=== PATIENT | male | born 1980 | race Caucasian/White ===

== ENCOUNTER → 2016-08-11 | Outpatient (CLI) | payer OTHER ==
--- NOTE | 2016-08-22 10:29 | MR ---
EXAMINATION TYPE: MR brain wo con DATE OF EXAM: 08/11/2016 11:04 AM COMPARISON: Outside MRI dated 07/14/2014 HISTORY: TIA T1-weighted sagittal, T2, FLAIR, and diffusion axial, and T2 coronal coronal views of the brain are s ubmitted. There is no evidence of acute ischemia. The ventricles, basal cisterns, and sulci overlying the conv exities are consistent with the patient's age. There is no mass effect. There is a partially empty sella turcica. Craniocervical junction is maintained. 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 Normal vascular signal voids are noted. Small pineal gland cyst incidentally noted. No cerebellopontine angle mass. WHITE MATTER: There are 3 less than 5 mm areas of abnormal signal seen throughout the white matter. O f doubtful significance. No callosal lesions. No lesions perpendicular to the ventricular system. Single focal area of signal within the te on the right is noted on FLAIR imaging only and likely a rtifactual. IMPRESSION: 1. No acute intracranial process. 2. Minimal nonspecific white matter disease of questionable significance. 3. Moderate to severe chronic appearing ethmoidal sinusitis.
== END | disposition home or self-care (01) ==
LOC: RADMRIMAIN 10:14
PROVIDERS: ATTEND Psychiatry & Neurology Neurology
DX: J32.2 Chronic ethmoidal sinusitis (principal); R90.82 White matter disease, unspecified
CPT/HCPCS: 70551

== ENCOUNTER 2016-11-12 21:23 | Emergency (ER) | payer OTHER ==
[2016-11-12 21:54] VITALS: BP 137/79; PULSE 86; RESP 18; TEMP 99
[2016-11-12] MEDS ORDERED: HYDROmorphone 1 MG/ML 1 ML SYRINGE IM STA (22:25)
[2016-11-12] MEDS ORDERED: DEXAMETHASONE SOD PHOSPHATE 10 MG/ML 1 ML VIAL IM STA (22:25)
--- NOTE | 2016-11-12 22:33 | ED ---
General Adult HPI - General Chief complaint: Back Pain/Injury Stated complaint: Back Pain Time Seen by Provider: 11/12/16 22:07 Source: patient, RN notes reviewed Mode of arrival: wheelchair Limitations: no limitations - History of Present Illness Initial comments: Patient is 36-year-old male significant past medical history for back pain. He does admit to some pain radiating to the right hip area. States is consistent with chronic pain that is had in the past. Does admit that at times he seems to exacerbate. He does admit that he is taking Dike with little relief. Patient denies any bowel or bladder incontinence retention. Denies any saddle anesthesia. Denies any other complaints or symptoms. Denies any injury or trauma to the area. Patient denies any recent fever, chills, shortness of breath , chest pain, abdominal pain, nausea or vomiting, dysuria or hematuria, constipation or diarrhea, headaches or visual changes, or any other complaints. - Related Data Home Medications Medication Instructions Recorded Confirmed Promethazine [Phenergan] 25 mg PO Q6HR PRN 01/01/14 05/19/16 HYDROcodone/APAP 7.5-325MG [[place] 1 tab PO Q6H PRN 05/20/14 05/19/16 7.5] Aspirin EC [Ecotrin Low Dose] 81 mg PO HS 05/19/16 05/19/16 Omeprazole 20 mg PO HS 05/19/16 05/19/16 Ranitidine HCl [Zantac] 75 mg PO HS 05/19/16 05/19/16 Previous Rx's Medication Instructions Recorded Amoxicillin/Potassium Clav 1 tab PO Q12HR 14 Days 05/19/16 [Augmentin 875-125 Tablet] Ibuprofen [Motrin] 800 mg PO Q8HR PRN #21 tab 05/19/16 Ondansetron HCl [Zofran] 4 mg PO Q8HR PRN #12 tab 05/19/16 Allergies Allergy/AdvReac Type Severity Reaction Status Date / Time No Known Allergies Allergy Verified 11/12/16 21:54 Review of Systems ROS Statement: Those systems with pertinent positive or pertinent negative responses have been documented in the HPI. ROS Other: All systems not noted in ROS Statement are negative. Past Medical History Past Medical History: CVA/TIA Additional Past Medical History / Comment(s): diverticulitis, crohns, back problems History of Any Multi-Drug Resistant Organisms: None Reported Past Surgical History: Adenoidectomy, Hernia Repair, Tonsillectomy Past Psychological History: No Psychological Hx Reported Smoking Status: Current every day smoker Past Alcohol Use History: None Reported Past Drug Use History: None Reported General Exam - General Exam Comments Initial Comments: General: The patient is awake and alert, in no distress, and does not appear acutely ill. Eye: Pupils are equal, round and reactive to light, extra-ocular movements are intact. No nystagmus. There is normal conjunctiva bilaterally. No signs of icterus. Ears, nose, mouth and throat: There are moist mucous membranes and no oral lesions. Neck: The neck is supple, there is no tenderness or JVD. Cardiovascular: There is a regular rate and rhythm. No murmur, rub or gallop is appreciated. Respiratory: Lungs are clear to auscultation, respirations are non-labored, breath sounds are equal. No wheezes, stridor, rales, or rhonchi. Musculoskeletal: Normal ROM. Normal appearance of thoracic, lumbar spine. No step-offs deformities appreciated. No tenderness in the midline spine. Patient is tender over the right SI joint. Strength 5/5. Sensation intact. Pulses equal bilaterally 2+. Neurological: A&O x 3. CN II-XII intact, There are no obvious motor or sensory deficits. Coordination appears grossly intact. Speech is normal. Skin: Skin is warm and dry and no rashes or lesions are noted. Psychiatric: Cooperative, appropriate mood & affect, normal judgment. Limitations: no limitations Course Vital Signs 11/12/16 21:52 Temperature 99 F Pulse Rate 86 Respiratory 18 Rate Blood Pressure 137/79 O2 Sat by Pulse 98 Oximetry Medical Decision Making - Medical Decision Making Given dose of pain medication and steroids here in emergency room. Will be Discharged home. Disposition Clinical Impression: Acute exacerbation of chronic low back pain Disposition: HOME SELF-CARE Condition: Good Instructions: Chronic Back Pain (ED) Additional Instructions: Please follow-up with family doctor in the next 2 days of symptoms have not improved. Please return to emergency room if the symptoms increase or worsen or for any other concerns. Time of Disposition: 22:31
== END 2016-11-12 22:44 | disposition home or self-care (01) ==
LOC: EC 21:23
DX: G89.29 Other chronic pain (principal); M54.5 Low back pain; M25.551 Pain in right hip; Z86.73 Personal history of transient ischemic attack (TIA), and cerebral infarction without residual deficits; F17.200 Nicotine dependence, unspecified, uncomplicated; Z79.82 Long term (current) use of aspirin; Z79.899 Other long term (current) drug therapy
CPT/HCPCS: 99283; 96372 ×2; J1100; J1170

== ENCOUNTER 2017-02-09 13:51 | Emergency (ER) | payer OTHER ==
[2017-02-09 13:57] VITALS: BP 141/68; PULSE 68; RESP 18; TEMP 97.1
[2017-02-09] MEDS ORDERED: methylPREDNISolone SOD SUCCI 125 MG/2 ML VIAL IM STA (14:07)
[2017-02-09] MEDS ORDERED: KETOROLAC 60 MG/2 ML VIAL IM STA (14:07)
[2017-02-09] MEDS ORDERED: ORPHENADRINE 30 MG/ML 2 ML VIAL IM STA (14:07)
--- NOTE | 2017-02-09 14:22 | ED ---
General Adult HPI - General Chief complaint: Back Pain/Injury Stated complaint: sciatica Time Seen by Provider: 02/09/17 14:04 Source: patient, RN notes reviewed Mode of arrival: wheelchair Limitations: physical limitation - History of Present Illness Initial comments: 36 yo male presents to the ER with cc of of a flareup of his typical sciatica. Patient states he suffers from chronic sciatica. Patient states it flared up exactly like normal. Patient states he normally gets a pain shot and he did steroids for home. Patient states there is no loss of bowel or bladder function. Patient states exactly like his typical sciatica. Patient states his radiation down the right leg. Patient denies any falls traumas or injuries. Patient was concerned due to the pains without that he should be evaluated. Patient denies any recent fever, chills, shortness of breath, chest pain, abdominal pain, nausea vomiting, numbness or tingling, dysuria or hematuria, constipation or diarrhea, headaches or visual changes, or any other current symptoms. - Related Data Home Medications Medication Instructions Recorded Confirmed Promethazine [Phenergan] 25 mg PO Q6HR PRN 01/01/14 05/19/16 HYDROcodone/APAP 7.5-325MG [[place] 1 tab PO Q6H PRN 05/20/14 05/19/16 7.5] Aspirin EC [Ecotrin Low Dose] 81 mg PO HS 05/19/16 05/19/16 Omeprazole 20 mg PO HS 05/19/16 05/19/16 Ranitidine HCl [Zantac] 75 mg PO HS 05/19/16 05/19/16 Previous Rx's Medication Instructions Recorded Amoxicillin/Potassium Clav 1 tab PO Q12HR 14 Days 05/19/16 [Augmentin 875-125 Tablet] Ibuprofen [Motrin] 800 mg PO Q8HR PRN #21 tab 05/19/16 Ondansetron HCl [Zofran] 4 mg PO Q8HR PRN #12 tab 05/19/16 Orphenadrine [Norflex] 100 mg PO Q12H #10 tablet.er 02/09/17 predniSONE 50 mg PO DAILY #5 tab 02/09/17 Allergies Allergy/AdvReac Type Severity Reaction Status Date / Time No Known Allergies Allergy Verified 02/09/17 13:56 Review of Systems ROS Statement: Those systems with pertinent positive or pertinent negative responses have been documented in the HPI. ROS Other: All systems not noted in ROS Statement are negative. Past Medical History Past Medical History: CVA/TIA Additional Past Medical History / Comment(s): diverticulitis, crohns, back problems History of Any Multi-Drug Resistant Organisms: None Reported Past Surgical History: Adenoidectomy, Hernia Repair, Tonsillectomy Past Psychological History: No Psychological Hx Reported Smoking Status: Current every day smoker Past Alcohol Use History: None Reported Past Drug Use History: None Reported General Exam Limitations: physical limitation General appearance: alert, in no apparent distress Head exam: Present: atraumatic, normocephalic, normal inspection ENT exam: Present: normal exam, mucous membranes moist Neck exam: Present: normal inspection. Absent: tenderness, meningismus, lymphadenopathy Respiratory exam: Present: normal lung sounds bilaterally. Absent: respiratory distress, wheezes, rales, rhonchi, stridor Cardiovascular Exam: Present: regular rate, normal rhythm, normal heart sounds. Absent: systolic murmur, diastolic murmur, rubs, gallop, clicks Back exam: Present: normal inspection, full ROM, tenderness, paraspinal tenderness (To the right lateral aspect right-sided). Absent: rash noted Neurological exam: Present: alert, oriented X3 Psychiatric exam: Present: normal affect, normal mood Skin exam: Present: warm, dry, intact, normal color. Absent: rash Course Vital Signs 02/09/17 13:52 Temperature 97.1 F L Pulse Rate 68 Respiratory 18 Rate Blood Pressure 141/68 O2 Sat by Pulse 100 Oximetry Medical Decision Making - Medical Decision Making 36-year-old male presents for a curb of his low back pain. At this time we give the patient injections we will start him on steroids muscle asked for home. Discussed return for hours and follow-up and all questions. He stated he understood and he is doing plan. They will be discharged. Disposition Clinical Impression: Sciatica, Chronic back pain Disposition: HOME SELF-CARE Condition: Stable Instructions: Chronic Back Pain (ED) Additional Instructions: Please use medication as discussed. Please follow up with family doctor if symptoms have not improved over the next two days. Please return to the emergency room if your symptoms increase or worsen or for any other concerns. Prescriptions: Orphenadrine [Norflex] 100 mg PO Q12H #10 tablet.er predniSONE 50 mg PO DAILY #5 tab Referrals: Antony Altamirano DO [Primary Care Provider] - 1-2 days Time of Disposition: 14:22
== END 2017-02-09 14:48 | disposition home or self-care (01) ==
LOC: EC 13:51
DX: M54.31 Sciatica, right side (principal); F17.200 Nicotine dependence, unspecified, uncomplicated; Z79.82 Long term (current) use of aspirin; Z79.899 Other long term (current) drug therapy
CPT/HCPCS: 99283; 96372 ×3; J2360; J2930; J1885

== ENCOUNTER 2017-04-28 20:04 | Emergency (ER) | payer OTHER ==
[2017-04-28 20:09] VITALS: BP 128/72; PULSE 79; RESP 16; TEMP 98.2
[2017-04-28] MEDS ORDERED: KETOROLAC 30 MG/ML 1 ML VIAL IM STA (20:37)
[2017-04-28] MEDS ORDERED: methylPREDNISolone SOD SUCCI 125 MG/2 ML VIAL IM ONE (20:37)
--- NOTE | 2017-04-28 20:56 | ED ---
Back Pain HPI - General Chief Complaint: Back Pain/Injury Stated Complaint: Sciatica Time Seen by Provider: 04/28/17 20:16 Source: patient, RN notes reviewed Limitations: no limitations - History of Present Illness Initial Comments: This is a 36-year-old male who presents to the emergency department with chief complaint of sciatica. Patient states he has chronic sciatica and is experiencing a current flare. He states the flareup started yesterday. He states most of the pain is localized to the left side of lower back with radiation down left leg with some radiation down right leg as well. He has presented to the emergency room multiple times in the past for the same issue. He states that current pain is similar to previous episodes of sciatica flareups. He denies saddle paresthesias or loss of bladder or bowel function. Denies fever, chills, chest pain, shortness of breath, abdominal pain, nausea or vomiting, constipation or diarrhea, dysuria or hematuria, numbness or tingling, headache or vision changes. - Related Data Home Medications Medication Instructions Recorded Confirmed Promethazine [Phenergan] 25 mg PO Q6HR PRN 01/01/14 04/28/17 Aspirin EC [Ecotrin Low Dose] 81 mg PO HS 05/19/16 04/28/17 Omeprazole 20 mg PO HS 05/19/16 04/28/17 HYDROcodone/APAP 5-325MG [[place] 1 tab PO Q6H PRN 04/28/17 04/28/17 5-325] Previous Rx's Medication Instructions Recorded Orphenadrine [Norflex] 100 mg PO Q12H #10 tablet.er 04/28/17 predniSONE 50 mg PO DAILY #5 tablet 04/28/17 Allergies Allergy/AdvReac Type Severity Reaction Status Date / Time No Known Allergies Allergy Verified 04/28/17 20:24 Review of Systems ROS Statement: Those systems with pertinent positive or pertinent negative responses have been documented in the HPI. ROS Other: All systems not noted in ROS Statement are negative. Past Medical History Past Medical History: CVA/TIA Additional Past Medical History / Comment(s): diverticulitis, crohns, back problems History of Any Multi-Drug Resistant Organisms: None Reported Past Surgical History: Adenoidectomy, Hernia Repair, Tonsillectomy Past Psychological History: No Psychological Hx Reported Smoking Status: Current every day smoker Past Alcohol Use History: None Reported Past Drug Use History: None Reported General Exam Limitations: no limitations General appearance: alert, in no apparent distress Head exam: Present: atraumatic, normocephalic, normal inspection Eye exam: Present: normal appearance, PERRL, EOMI ENT exam: Present: normal exam, normal oropharynx, mucous membranes moist Neck exam: Present: normal inspection, full ROM. Absent: tenderness Respiratory exam: Present: normal lung sounds bilaterally. Absent: respiratory distress, wheezes, rales, rhonchi Cardiovascular Exam: Present: regular rate, normal rhythm, normal heart sounds. Absent: systolic murmur, diastolic murmur, rubs, gallop GI/Abdominal exam: Present: soft, normal bowel sounds. Absent: distended, tenderness, guarding, rebound, rigid Extremities exam: Present: normal inspection, full ROM. Absent: tenderness, pedal edema Back exam: Present: normal inspection, paraspinal tenderness. Absent: full ROM (refuses to sit up and has difficulty turning over onto side), CVA tenderness (R ), CVA tenderness (L), vertebral tenderness Neurological exam: Present: alert, altered, oriented X3, CN II-XII intact. Absent: motor sensory deficit Psychiatric exam: Present: normal affect, depressed Skin exam: Present: warm, dry, intact, normal color. Absent: rash Course Vital Signs 04/28/17 20:06 Temperature 98.2 F Pulse Rate 79 Respiratory 16 Rate Blood Pressure 128/72 O2 Sat by Pulse 97 Oximetry Medical Decision Making - Medical Decision Making This is a 36-year-old male who presents with complaint of acute on chronic sciatica. Patient states he experiences flareups of chronic sciatica every few months. Patient was given dose of steroids and pain medication while in the emergency department. He will be discharged home with Norflex and Prednisone. He is follow-up with his primary care physician in 1-2 days. Patient is in no acute distress at this time. He is in agreement with plan and voiced understanding. All questions were answered. Disposition Clinical Impression: Sciatica, Chronic back pain Disposition: HOME SELF-CARE Condition: Good Instructions: Sciatica (ED), Chronic Back Pain (ED) Additional Instructions: Please take medications as prescribed. Please follow up with primary care provider within 1-2 days. Return to emergency department if symptoms should worsen or any concerns arise. Prescriptions: Orphenadrine [Norflex] 100 mg PO Q12H #10 tablet.er predniSONE 50 mg PO DAILY #5 tablet Referrals: Antony Altamirano DO [Primary Care Provider] - 1-2 days Time of Disposition: 21:07
== END 2017-04-28 21:15 | disposition home or self-care (01) ==
LOC: EC 20:04
DX: M54.30 Sciatica, unspecified side (principal); G89.29 Other chronic pain; M54.9 Dorsalgia, unspecified; F32.9 Major depressive disorder, single episode, unspecified; F17.200 Nicotine dependence, unspecified, uncomplicated; Z79.82 Long term (current) use of aspirin; Z79.899 Other long term (current) drug therapy; Z87.39 Personal history of other diseases of the musculoskeletal system and connective tissue
CPT/HCPCS: 99283; 96372 ×2; J2930; J1885

== ENCOUNTER 2018-05-20 13:09 | Emergency (ER) | payer OTHER ==
[2018-05-20 13:18] VITALS: TEMP 98.5
--- NOTE | 2018-05-20 13:58 | ED ---
Neuro HPI - General Chief Complaint: Neuro Symptoms/Deficit Stated Complaint: Facial/ L side Weakness Time Seen by Provider: 05/20/18 13:23 Source: patient, family, RN notes reviewed Mode of arrival: ambulatory Limitations: no limitations - History of Present Illness Is the patient presenting with stroke symptoms?: Yes Initial Comments: This is a 37-year-old male history of UTIs who presents with complaints of several days a left facial and left upper extremity weakness. He does not know when it is actually began. He states is some wax and wane symptoms but he had the onset sometime early this morning of some worsening. He also states he has a temporal headache on the left. No fevers chills nausea vomiting sweats or other symptoms at this time. He does have residual left sided lower extremity weakness. He said this for several years. - Related Data Home Medications: Home Medications Medication Instructions Recorded Confirmed Promethazine [Phenergan] 25 mg PO Q6HR PRN 01/01/14 05/20/18 Aspirin EC [Ecotrin Low Dose] 81 mg PO HS 05/19/16 05/20/18 Omeprazole 20 mg PO HS 05/19/16 05/20/18 HYDROcodone/APAP 5-325MG [[place] 1 tab PO Q6H PRN 04/28/17 05/20/18 5-325] Allergies/Adverse Reactions: Allergies Allergy/AdvReac Type Severity Reaction Status Date / Time No Known Allergies Allergy Verified 05/20/18 13:26 Review of Systems ROS Statement: Those systems with pertinent positive or pertinent negative responses have been documented in the HPI. ROS Other: All systems not noted in ROS Statement are negative. General Exam - General Exam Comments Initial Comments: This is a well-developed well-nourished awake alert oriented 3 male Limitations: no limitations General appearance: alert, lethargic Head exam: Present: other (Left facial asymmetry the forehead is spared flattening of the left nasolabial fold) Eye exam: Present: normal appearance, PERRL, EOMI. Absent: scleral icterus, conjunctival injection, periorbital swelling ENT exam: Present: normal exam, mucous membranes moist Neck exam: Present: normal inspection, other (No stridor JVD or bruits). Absent : tenderness, meningismus, lymphadenopathy Respiratory exam: Present: normal lung sounds bilaterally. Absent: respiratory distress, wheezes, rales, rhonchi, stridor Cardiovascular Exam: Present: regular rate, normal rhythm, normal heart sounds. Absent: systolic murmur, diastolic murmur, rubs, gallop, clicks GI/Abdominal exam: Present: soft, normal bowel sounds. Absent: distended, tenderness, guarding, rebound, rigid, bruit, pulsatile mass, hernia Extremities exam: Present: full ROM, normal capillary refill. Absent: normal inspection, tenderness, pedal edema, joint swelling, calf tenderness Back exam: Present: normal inspection Neurological exam: Present: alert, oriented X3, motor sensory deficit (Left upper extremity motor weakness left facial weakness compared to the opposite side.) Psychiatric exam: Present: normal affect, normal mood Skin exam: Present: warm, dry, intact, normal color. Absent: rash Stroke MDM - Lab Data Result diagrams: 05/20/18 14:52 05/20/18 14:03 Lab Results 05/20/18 05/20/18 05/20/18 Range/Units 14:03 14:03 14:03 WBC (3.8-10.6) k/uL RBC (4.30-5.90) m/uL Hgb (13.0-17.5) gm/dL Hct (39.0-53.0) % MCV (80.0-100.0) fL MCH (25.0-35.0) pg MCHC (31.0-37.0) g/dL RDW (11.5-15.5) % Plt Count (150-450) k/uL Neutrophils % % Lymphocytes % % Monocytes % % Eosinophils % % Basophils % % Neutrophils # (1.3-7.7) k/uL Lymphocytes # (1.0-4.8) k/uL Monocytes # (0-1.0) k/uL Eosinophils # (0-0.7) k/uL Basophils # (0-0.2) k/uL PT 9.8 (9.0-12.0) sec INR 1.0 (<1.2) APTT 25.4 (22.0-30.0) sec Sodium 140 (137-145) mmol/L Potassium 4.3 (3.5-5.1) mmol/L Chloride 107 (98-107) mmol/L Carbon Dioxide 24 (22-30) mmol/L Anion Gap 9 mmol/L BUN 7 L (9-20) mg/dL Creatinine 0.72 (0.66-1.25) mg/dL Est GFR (CKD-EPI)AfAm >90 (>60 ml/min/1.73 sqM) Est GFR (CKD-EPI)NonAf >90 (>60 ml/min/1.73 sqM) Glucose 78 (74-99) mg/dL Calcium 9.4 (8.4-10.2) mg/dL Total Bilirubin 0.5 (0.2-1.3) mg/dL AST 28 (17-59) U/L ALT 26 (21-72) U/L Alkaline Phosphatase 46 (38-126) U/L Total Creatine Kinase 80 (55-170) U/L CK-MB (CK-2) 0.7 (0.0-2.4) ng/mL CK-MB (CK-2) Rel Index 0.9 Troponin I <0.012 (0.000-0.034) ng/mL Total Protein 6.5 (6.3-8.2) g/dL Albumin 3.9 (3.5-5.0) g/dL 05/20/18 Range/Units 14:52 WBC 9.8 (3.8-10.6) k/uL RBC 5.18 (4.30-5.90) m/uL Hgb 15.7 (13.0-17.5) gm/dL Hct 47.6 (39.0-53.0) % MCV 91.9 (80.0-100.0) fL MCH 30.3 (25.0-35.0) pg MCHC 33.0 (31.0-37.0) g/dL RDW 13.4 (11.5-15.5) % Plt Count 327 (150-450) k/uL Neutrophils % 62 % Lymphocytes % 26 % Monocytes % 6 % Eosinophils % 3 % Basophils % 1 % Neutrophils # 6.2 (1.3-7.7) k/uL Lymphocytes # 2.6 (1.0-4.8) k/uL Monocytes # 0.6 (0-1.0) k/uL Eosinophils # 0.3 (0-0.7) k/uL Basophils # 0.1 (0-0.2) k/uL PT (9.0-12.0) sec INR (<1.2) APTT (22.0-30.0) sec Sodium (137-145) mmol/L Potassium (3.5-5.1) mmol/L Chloride (98-107) mmol/L Carbon Dioxide (22-30) mmol/L Anion Gap mmol/L BUN (9-20) mg/dL Creatinine (0.66-1.25) mg/dL Est GFR (CKD-EPI)AfAm (>60 ml/min/1.73 sqM) Est GFR (CKD-EPI)NonAf (>60 ml/min/1.73 sqM) Glucose (74-99) mg/dL Calcium (8.4-10.2) mg/dL Total Bilirubin (0.2-1.3) mg/dL AST (17-59) U/L ALT (21-72) U/L Alkaline Phosphatase (38-126) U/L Total Creatine Kinase (55-170) U/L CK-MB (CK-2) (0.0-2.4) ng/mL CK-MB (CK-2) Rel Index Troponin I (0.000-0.034) ng/mL Total Protein (6.3-8.2) g/dL Albumin (3.5-5.0) g/dL - NIH Stroke Scale 1a. Level of Consciousness: (0) alert 1b. LOC Questions: (0) answers correctly 1c. LOC Commands: (0) performs tasks correctly 2. Best Gaze: (0) normal 3. Visual: (0) no visual loss 4. Facial Palsy: (1) minor paralysis 5a. Motor Arm Left: (0) no drift 5b. Motor Arm Right: (0) no drift 6a. Motor Leg Left: (1) drift 6b. Motor Leg Right: (0) no drift 7. Limb Ataxia: (0) absent 8. Sensory: (1) mild/moderate sensory loss 9. Best Language: (0) no aphasia 10. Dysarthria: (0) normal 11. Extinction/Inattention: (0) no abnormality - Thrombolytic Inclusion/Exclusion Thrombolytic Exclusion Criteria: Symptom Onset > 3 Hours (3 days ago) - Medical Decision Making Patient had no further change in his symptoms. Due to the symptoms he will be admitted and evaluated by neurology. He is not a interventional candidate at this point as the symptoms that been going on for about 3 days. I did discuss the case with Dr. Hylton - EKG Data -: EKG Interpreted by Me EKG shows normal: sinus rhythm (Sinus rhythm with occasional PVCs rate was 68. Interval 146 QRS duration 92 daily since QTC 390/414) Past Medical History Past Medical History: CVA/TIA Additional Past Medical History / Comment(s): diverticulitis, crohns, back problems History of Any Multi-Drug Resistant Organisms: None Reported Past Surgical History: Adenoidectomy, Hernia Repair, Tonsillectomy Past Psychological History: No Psychological Hx Reported Smoking Status: Current some day smoker Past Alcohol Use History: Rare Past Drug Use History: Marijuana Course Vital Signs 05/20/18 13:14 Temperature 98.5 F Pulse Rate 71 Respiratory 18 Rate Blood Pressure 135/91 O2 Sat by Pulse 100 Oximetry - Reevaluation(s) Reevaluation #1: 05/20/18 16:21 Evaluation patient no acute changes no further escalation of symptoms Disposition Clinical Impression: Cerebrovascular accident Disposition: ADMITTED IP TO THIS [facility] Condition: Stable Referrals: Antony Altamirano DO [Primary Care Provider] - 1-2 days
--- NOTE | 2018-05-20 14:43 | CT ---
EXAMINATION TYPE: CT brain wo con for TPA DATE OF EXAM: 05/20/2018 COMPARISON: 05/19/2016 HISTORY: Left sided weakness. hx of stroke CT DLP: 1213.4 mGycm Automated exposure control for dose reduction was used. FINDINGS: There is no acute intracranial hemorrhage, mass effect, or midline shift identified. Incidental note is made of a partially empty sella turcica. No suspicious extra-axial fluid collection. The ventricle s and sulci are within normal limits in size. Mucosal thickening is seen within the ethmoid sinuses with extension through the left frontal recess into the left frontal sinuses. There is hypoplasia of the left mastoid air cells. The globes are intact and the remaining visualized sinuses are clear. IMPRESSION: No acute intracranial process.
[2018-05-20 15:04] LABS: Basophils # (A) 0.1 k/uL (0-0.2); Basophils % (A) 1 %; Eosinophils # (A) 0.3 k/uL (0-0.7); Eosinophils % (A) 3 %; HCT 47.6 % (39.0-53.0); HGB 15.7 gm/dL (13.0-17.5); Lymphocytes # (A) 2.6 k/uL (1.0-4.8); Lymphocytes % (A) 26 %; MCH 30.3 pg (25.0-35.0); MCV 91.9 fL (80.0-100.0); Mean Platelet Volume 6.8; Monocytes # (A) 0.6 k/uL (0-1.0); Monocytes % (A) 6 %; Neutrophils # (A) 6.2 k/uL (1.3-7.7); Neutrophils % (A) 62 %; Platelet Count 327 k/uL (150-450); RBC 5.18 m/uL (4.30-5.90); RDW 13.4 % (11.5-15.5); WBC 9.8 k/uL (3.8-10.6)
--- NOTE | 2018-05-20 15:09 | XR ---
EXAMINATION TYPE: XR chest 2V DATE OF EXAM: 05/20/2018 COMPARISON: 04/19/2014 HISTORY: Left upper extremity weakness. Altered mental status. TECHNIQUE: Frontal and lateral views of the chest are obtained. FINDINGS: There is no focal air space opacity, pleural effusion, or pneumothorax seen. The cardiac silhouette size is within normal limits. The osseous structures are intact. Minimal multilevel dege nerative changes of the spine are present. IMPRESSION: No acute cardiopulmonary process.
[2018-05-20 15:13] LABS: ALT 26 U/L (21-72); AST 28 U/L (17-59); Albumin 3.9 g/dL (3.5-5.0); Alkaline Phosphatase 46 U/L (38-126); Anion Gap 9 mmol/L; Blood Urea Nitrogen 7 mg/dL (9-20); Calcium 9.4 mg/dL (8.4-10.2); Carbon Dioxide 24 mmol/L (22-30); Chloride 107 mmol/L (98-107); Glucose 78 mg/dL (74-99); Potassium 4.3 mmol/L (3.5-5.1); Sodium 140 mmol/L (137-145); Total Bilirubin 0.5 mg/dL (0.2-1.3); Total Protein 6.5 g/dL (6.3-8.2)
[2018-05-20 15:14] LABS: Partial Thromboplastin Time 25.4 sec (22.0-30.0); Prothrombin Time 9.8 sec (9.0-12.0)
[2018-05-20 15:17] LABS: Creatine Kinase 80 U/L (55-170)
[2018-05-20 15:31] LABS: Creatine Kinase MB 0.7 ng/mL (0.0-2.4); Troponin I <0.012 ng/mL (0.000-0.034)
[2018-05-20] MEDS ORDERED: SODIUM CHLORIDE 0.9% 1,000 ML IV SCH (16:30)
[2018-05-20] MEDS ORDERED: HYDROcodone/APAP 5-325MG 1 EACH TAB PO PRN (16:33)
[2018-05-20] MEDS ORDERED: PROMETHAZINE 25 MG TAB PO PRN (16:33)
[2018-05-20 16:47] VITALS: RESP 14
[2018-05-20 17:38] VITALS: BP 120/79; PULSE 66
[2018-05-20] MEDS ORDERED: PANTOPRAZOLE 40 MG TABLET PO SCH (21:00)
[2018-05-21] MEDS ORDERED: ASPIRIN 325 MG TAB PO SCH (16:32)
== END 2018-05-20 18:27 | disposition left against medical advice (07) ==
LOC: SUPCPDRO 13:09 → EC 13:09 → 3SCARD 16:36 → UNDOADMIN 16:36 → 3SCARD 17:51 → UNDODISIN 18:27 → EC 18:27
DX: I63.9 Cerebral infarction, unspecified (principal); K50.90 Crohn's disease, unspecified, without complications; G81.94 Hemiplegia, unspecified affecting left nondominant side; F17.200 Nicotine dependence, unspecified, uncomplicated; Z86.73 Personal history of transient ischemic attack (TIA), and cerebral infarction without residual deficits; Z87.440 Personal history of urinary (tract) infections; R29.810 Facial weakness; R40.2432 Glasgow coma scale score 3-8, at arrival to emergency department; Z79.82 Long term (current) use of aspirin; Z79.899 Other long term (current) drug therapy
CPT/HCPCS: 36415; 70450; 71046; 80053; 82550; 82553; 84484; 85025; 85610; 85730; 93005; 99285

== ENCOUNTER 2019-08-04 01:06 | Inpatient (IN) | payer OTHER ==
[2019-08-04] MEDS ORDERED: SODIUM CHLORIDE 0.9% 1,000 ML IV STA (01:12)
--- NOTE | 2019-08-04 01:22 | ED ---
Neuro HPI - General Stated Complaint: left side numbness Time Seen by Provider: 08/04/19 01:12 Source: patient, EMS Mode of arrival: ambulatory - History of Present Illness Is the patient presenting with stroke symptoms?: Yes Last Known Well Date: 08/03/19 Last Known Well Time: 23:45 -: hour(s) Initial Comments: Regis a 39-year-old male with a history of CVA in the past which was treated with TPA approximately 4 years ago at a hospital in [place]. Patient is brought to the ER today by private vehicle by his for evaluation of sudden onset of left-sided weakness. reports that she came home around 9:30 from work and the patient was in his usual state of health she said he seemed like he wasn't feeling well and he didn't have any acute deficits. She states that between 1145 and midnight she got up to use the restroom when she return to the room the patient had complete left arm and leg weakness, she felt that he had some slurred speech and some facial droop which prompted her to bring him to the ER for further evaluation. reports that the patient is on daily aspirin is compliant with his medication he is not on any other antiplatelet or anticoagulant medications. They're uncertain of the cause of his previous stroke. He doesn't have continuity of care as he has moved from [place] to [place]. He doesn't follow with a neurologist currently. She is uncertain if he has been tested for any heart problems or clotting disorders. She states that his father of palpitations of diabetes in his late 40s or early 50s. Patient is still in every day cigarette smoker. - Related Data Home Medications: Home Medications Medication Instructions Recorded Confirmed Promethazine [Phenergan] 25 mg PO Q6HR PRN 01/01/14 05/20/18 Aspirin EC [Ecotrin Low Dose] 81 mg PO HS 05/19/16 05/20/18 Omeprazole 20 mg PO HS 05/19/16 05/20/18 HYDROcodone/APAP 5-325MG [[place] 1 tab PO Q6H PRN 04/28/17 05/20/18 5-325] Allergies/Adverse Reactions: Allergies Allergy/AdvReac Type Severity Reaction Status Date / Time No Known Allergies Allergy Verified 05/20/18 13:26 Review of Systems ROS Statement: Those systems with pertinent positive or pertinent negative responses have been documented in the HPI. ROS Other: All systems not noted in ROS Statement are negative. General Exam - General Exam Comments Initial Comments: Physical Exam GENERAL: Unwell-appearing gentleman with left-sided weakness HENT: Normocephalic, Atraumatic. EYES: PERRL, EOMI PULMONARY: Unlabored respirations. No audible rales rhonchi or wheezing was noted. CARDIOVASCULAR: There is a regular rate and rhythm without any murmurs gallops or rubs. ABDOMEN: Soft and nontender with normal bowel sounds. SKIN: Skin is clear with no lesions or rashes and otherwise unremarkable. : Deferred NEUROLOGIC: Awake alert and oriented Left arm and leg weakness Left facial droop MUSCULOSKELETAL: Weakness and left arm and leg, normal strength the right arm and leg PSYCHIATRIC: Helpless affect Stroke MDM - Lab Data Result diagrams: 08/04/19 01:17 08/04/19 01:17 Lab Results 08/04/19 08/04/19 08/04/19 Range/Units 01:13 01:17 01:17 WBC 10.9 H (3.8-10.6) k/uL RBC 4.98 (4.30-5.90) m/uL Hgb 15.1 (13.0-17.5) gm/dL Hct 44.7 (39.0-53.0) % MCV 89.8 (80.0-100.0) fL MCH 30.3 (25.0-35.0) pg MCHC 33.7 (31.0-37.0) g/dL RDW 13.6 (11.5-15.5) % Plt Count 313 (150-450) k/uL Neutrophils % 63 % Lymphocytes % 25 % Monocytes % 6 % Eosinophils % 3 % Basophils % 1 % Neutrophils # 6.9 (1.3-7.7) k/uL Lymphocytes # 2.7 (1.0-4.8) k/uL Monocytes # 0.6 (0-1.0) k/uL Eosinophils # 0.4 (0-0.7) k/uL Basophils # 0.1 (0-0.2) k/uL PT (9.0-12.0) sec INR (<1.2) APTT (22.0-30.0) sec Sodium 139 (137-145) mmol/L Potassium 3.8 (3.5-5.1) mmol/L Chloride 104 (98-107) mmol/L Carbon Dioxide 26 (22-30) mmol/L Anion Gap 9 mmol/L BUN 11 (9-20) mg/dL Creatinine 0.91 (0.66-1.25) mg/dL Est GFR (CKD-EPI)AfAm >90 (>60 ml/min/1.73 sqM) Est GFR (CKD-EPI)NonAf >90 (>60 ml/min/1.73 sqM) Glucose 89 (74-99) mg/dL POC Glucose (mg/dL) 112 H (75-99) mg/dL POC Glu Radio Repairer ID Myke Barron A Calcium 9.5 (8.4-10.2) mg/dL Total Bilirubin 0.6 (0.2-1.3) mg/dL AST 23 (17-59) U/L ALT 21 (4-49) U/L Alkaline Phosphatase 49 (38-126) U/L Troponin I (0.000-0.034) ng/mL Total Protein 6.7 (6.3-8.2) g/dL Albumin 4.3 (3.5-5.0) g/dL 08/04/19 08/04/19 Range/Units 01:17 01:17 WBC (3.8-10.6) k/uL RBC (4.30-5.90) m/uL Hgb (13.0-17.5) gm/dL Hct (39.0-53.0) % MCV (80.0-100.0) fL MCH (25.0-35.0) pg MCHC (31.0-37.0) g/dL RDW (11.5-15.5) % Plt Count (150-450) k/uL Neutrophils % % Lymphocytes % % Monocytes % % Eosinophils % % Basophils % % Neutrophils # (1.3-7.7) k/uL Lymphocytes # (1.0-4.8) k/uL Monocytes # (0-1.0) k/uL Eosinophils # (0-0.7) k/uL Basophils # (0-0.2) k/uL PT 9.7 (9.0-12.0) sec INR 0.9 (<1.2) APTT 25.2 (22.0-30.0) sec Sodium (137-145) mmol/L Potassium (3.5-5.1) mmol/L Chloride (98-107) mmol/L Carbon Dioxide (22-30) mmol/L Anion Gap mmol/L BUN (9-20) mg/dL Creatinine (0.66-1.25) mg/dL Est GFR (CKD-EPI)AfAm (>60 ml/min/1.73 sqM) Est GFR (CKD-EPI)NonAf (>60 ml/min/1.73 sqM) Glucose (74-99) mg/dL POC Glucose (mg/dL) (75-99) mg/dL POC Glu Radio Repairer ID Calcium (8.4-10.2) mg/dL Total Bilirubin (0.2-1.3) mg/dL AST (17-59) U/L ALT (4-49) U/L Alkaline Phosphatase (38-126) U/L Troponin I <0.012 (0.000-0.034) ng/mL Total Protein (6.3-8.2) g/dL Albumin (3.5-5.0) g/dL - NIH Stroke Scale 1a. Level of Consciousness: (0) alert 1b. LOC Questions: (0) answers correctly 1c. LOC Commands: (0) performs tasks correctly 2. Best Gaze: (0) normal 3. Visual: (0) no visual loss 4. Facial Palsy: (2) partial paralysis 5a. Motor Arm Left: (2) some gravity effort 5b. Motor Arm Right: (0) no drift 6a. Motor Leg Left: (2) some gravity effort 6b. Motor Leg Right: (0) no drift 7. Limb Ataxia: (0) absent 8. Sensory: (0) normal 9. Best Language: (1) mild/moderate aphasia 10. Dysarthria: (1) mild/moderate dysarthria 11. Extinction/Inattention: (0) no abnormality - Thrombolytic Inclusion/Exclusion Thrombolytic Inclusion Criteria: Symptom Onset < 4.5 h, NIH Stroke Scale Deficit, Negative CT Scan for ICH, Age 18 or Older, Glucose of 50-400mg/dl - Medical Decision Making Patient was seen in triage bay and immediately taken to resuscitation for evaluation of possible stroke Code stroke was activated upon arrival The patient a blood glucose of 112 upon arrival, normal vital signs, physical exam findings concerning for an acute stroke with left-sided deficits NIH score initially 8 Patient was taken to CT where computed tomography scan of the brain was obtained, IV access and labs were obtained, CT angiography was obtained Imaging was evaluated by neuro interventional list subscription agent Dr. Rubio, who then evaluated the patient via the stroke robot. He recommends tPA at this time for possible stroke. Patient does not have any large vessel occlusions amenable to intervention identified on CTA. Recommends admission to this hospital for evaluation by neurology. Risks benefit of TPA were discussed by neuro interventional S with the patient and at bedside and they consented to tPA. care was discussed with admitting tap puller Dr. Puri who agrees with plan for admission on TPA protocol care discussed with admitting physician Dr. Felton who agrees with admission for possible acute stroke status post TPA administration Patient received TPA, reported nearly complete resolution of symptoms within 1 hour Blood pressure within normal limits no need for medication at this time patient remained stable throughout the emergency department stay and was admitted to the ICU - EKG Data -: EKG Interpreted by [place] EKG shows normal: sinus rhythm Rate: normal EKG was obtained as part of the evaluation for an acute stroke, EKG was obtained at 1:34 AM, rate is 81 and rhythm is sinus there is a normal axis, there are normal intervals, MN 154, QRS 90, QTc is 429 there are no acute ST elevations or depressions there is no evidence of acute ischemia or infarction 08/04/19 02:02 Past Medical History Past Medical History: CVA/TIA Additional Past Medical History / Comment(s): diverticulitis, crohns, back problems History of Any Multi-Drug Resistant Organisms: None Reported Past Surgical History: Adenoidectomy, Hernia Repair, Tonsillectomy Past Psychological History: No Psychological Hx Reported Smoking Status: Current some day smoker Past Alcohol Use History: Rare Past Drug Use History: Marijuana Course Vital Signs 08/04/19 08/04/19 08/04/19 01:28 01:47 02:00 Temperature 98.5 F Pulse Rate 83 83 79 Respiratory 18 18 18 Rate Blood Pressure 139/95 119/84 119/77 O2 Sat by Pulse 100 98 97 Oximetry 08/04/19 08/04/19 08/04/19 02:15 02:30 02:45 Temperature Pulse Rate 80 77 70 Respiratory 18 18 18 Rate Blood Pressure 112/78 119/85 121/79 O2 Sat by Pulse 98 99 99 Oximetry 08/04/19 08/04/19 08/04/19 03:00 03:15 03:30 Temperature Pulse Rate 79 71 74 Respiratory 18 18 18 Rate Blood Pressure 138/76 117/79 110/76 O2 Sat by Pulse 98 98 98 Oximetry Critical Care Time Critical Care Time: Yes Total Critical Care Time: 30 Critical Care Time: Critical Care Time Critical care time was exclusive of separately billable procedures and treating other patients and teaching time. Critical care was necessary to treat or prevent imminent or life-threatening deterioration. Given the critical condition in which the patient arrived, the patient was immediately assessed by myself and the nurse, and cardiac monitoring initiated due to the potential for rapid decompensation of the patient's clinical condition. During the course of the patients stay, I spent a considerable amount of time at the bedside performing serial re-evaluations of the patient's h emodynamic and clinical status because of the recognized potential threat to life or limb in this condition. I then had a chance to review not only all of the available current laboratory and radiographic studies obtained today, but I also reviewed old records available to me at the time. Additionally, any ancillary information available including bi consultant records were reviewed. Sequential vital signs were obtained. Disposition Clinical Impression: Cerebrovascular accident Disposition: ADMITTED IP TO THIS [facility] Condition: Serious Is patient prescribed a controlled substance at d/c from ED?: No
[2019-08-04 01:24] LABS: Glucose,Whole Blood 112 mg/dL (75-99)
[2019-08-04 01:27] LABS: Basophils # (A) 0.1 k/uL (0-0.2); Basophils % (A) 1 %; Eosinophils # (A) 0.4 k/uL (0-0.7); Eosinophils % (A) 3 %; HCT 44.7 % (39.0-53.0); HGB 15.1 gm/dL (13.0-17.5); Lymphocytes # (A) 2.7 k/uL (1.0-4.8); Lymphocytes % (A) 25 %; MCH 30.3 pg (25.0-35.0); MCHC 33.7 g/dL (31.0-37.0); MCV 89.8 fL (80.0-100.0); Mean Platelet Volume 7.1; Monocytes # (A) 0.6 k/uL (0-1.0); Monocytes % (A) 6 %; Neutrophils # (A) 6.9 k/uL (1.3-7.7); Neutrophils % (A) 63 %; Platelet Count 313 k/uL (150-450); RBC 4.98 m/uL (4.30-5.90); RDW 13.6 % (11.5-15.5); WBC 10.9 k/uL (3.8-10.6)
--- NOTE | 2019-08-04 01:34 | CT ---
EXAMINATION TYPE: CT brain wo con for TPA DATE OF EXAM: 08/04/2019 COMPARISON: 05/20/2018 HISTORY: Neuro deficit. CT DLP: mGycm Automated exposure control for dose reduction was used. Ventricles have normal size. There is no mass effect nor midline shift. There is no sign of intracran ial hemorrhage. The calvarium is intact. IMPRESSION: Negative CT scan of the brain. No change compared to old exam.
[2019-08-04 01:36] LABS: ALT 21 U/L (4-49); AST 23 U/L (17-59); African American GFR (CKD) >90 (>60 ml/min/1.73 sqM); Albumin 4.3 g/dL (3.5-5.0); Alkaline Phosphatase 49 U/L (38-126); Anion Gap 9 mmol/L; Blood Urea Nitrogen 11 mg/dL (9-20); Calcium 9.5 mg/dL (8.4-10.2); Carbon Dioxide 26 mmol/L (22-30); Chloride 104 mmol/L (98-107); Glucose 89 mg/dL (74-99); Non-African American GFR(CKD) >90 (>60 ml/min/1.73 sqM); Potassium 3.8 mmol/L (3.5-5.1); Sodium 139 mmol/L (137-145); Total Bilirubin 0.6 mg/dL (0.2-1.3); Total Protein 6.7 g/dL (6.3-8.2)
[2019-08-04] MEDS ORDERED: Alteplase PER PHARMACY Stroke 1 EACH MISC MISCELLANE PRN ×2 (01:36→02:07)
--- NOTE | 2019-08-04 01:36 | XR ---
EXAMINATION TYPE: XR chest 1V DATE OF EXAM: 08/04/2019 COMPARISON: 05/20/2018 HISTORY: Altered mental status TECHNIQUE: FINDINGS: Heart and mediastinum are normal. Lungs are clear. Diaphragm is normal. Bony thorax is inta ct. Pulmonary vascularity is normal. IMPRESSION: Normal chest. No change.
[2019-08-04 01:38] LABS: INR 0.9 (<1.2); Partial Thromboplastin Time 25.2 sec (22.0-30.0); Prothrombin Time 9.7 sec (9.0-12.0)
[2019-08-04] MEDS ORDERED: ALTEPLASE 81 MG in EMPTY BAG 1 BAG IV STA (01:44)
--- NOTE | 2019-08-04 01:44 | CT ---
EXAMINATION TYPE: CT angio head neck DATE OF EXAM: 08/04/2019 COMPARISON: None HISTORY: Acute deficet CT DLP: 830.9 mGycm Automated exposure control for dose reduction was used. CONTRAST: Performed with IV Contrast, patient injected with 100 mL of Isovue 370. Multiple axial sections were obtained from the aortic arch to the vertex of the brain with intravenou s contrast. There are 3-D post processed images. There is normal branching pattern of the great vessels on the aortic arch. There is bilateral arteria l flow in the subclavian arteries. There is arterial flow in the common internal and external carotid arteries bilaterally. There is wide patency of the carotid artery bifurcations. There is symmetric n ormal appearing vertebral arteries. There is no evidence of carotid or vertebral artery aneurysm or d issection. There is arterial flow in the vertebrobasilar artery system. There is arterial flow in the anterior middle and posterior cerebral arteries. There is no mass effec t. There is no evidence of intracranial aneurysm or neovascularity. There is normal contrast opacific ation of the venous sinuses. IMPRESSION: Negative CT angiogram of the neck. Negative CT angiogram of the brain.
[2019-08-04] MEDS ORDERED: ALTEPLASE BOLUS 9 MG in EMPTY SYRINGE 1 SYR IV STA (01:51)
[2019-08-04] MEDS ORDERED: NALOXONE 0.4 MG/ML 1 ML VIAL IV PRN (02:00)
[2019-08-04] MEDS ORDERED: IBUPROFEN 400 MG TAB PO PRN (02:00)
[2019-08-04] MEDS ORDERED: ACETAMINOPHEN TAB 325 MG TAB PO PRN (02:00)
[2019-08-04] MEDS ORDERED: SODIUM CHLORIDE 0.9% 1,000 ML IV SCH (02:45)
--- NOTE | 2019-08-04 03:41 | P.HPIM ---
History of Present Illness H&P Date: 08/04/19 The patient is a 39-year-old male with a PMH of CVA (February 2015) status post tPA and Crohn's disease presented to the ED with complaints of sudden onset of left-sided weakness and numbness. The patient reports that at around 11:30 PM on 08/03, the patient walked to the bathroom and when he returned to his bed, the patient suddenly developed weakness involving the entire left side including his face. His noticed his symptoms, particularly his facial droop and slurring of speech, and immediately brought him into the emergency room. The patient was evaluated by the neuro publishing systems analyst via telemedicine and was deemed to have an NIH score of 8. The patient underwent a CTA of head and neck which were unremarkable with no large vessel occlusion noted. He was subsequently administered tPA. The patient underwent an EKG which revealed normal sinus rhythm at [address] was unremarkable. The patient was seen in the emergency room. He reported that his symptoms had entirely resolved after receiving the tPA. He reported that his left side no longer felt weak or numb and that his speech was back to baseline as well. He further denied any additional complaints. Denied headache, visual changes, chest pain, shortness of breath, nausea, vomiting, or dizziness. Laboratory evaluation in the emergency room revealed a WBC count of 10.9, hemoglobin 15.1, platelets 313, sodium 139, potassium 3.8, BUN 11, creatinine 0.91, and glucose 112. He is being admitted to the medicine service for further monitoring and evaluation by neurology. Review of Systems Pertinent positives and negatives as discussed in HPI, a complete review of systems was performed and all other systems are negative. Past Medical History Past Medical History: CVA/TIA Additional Past Medical History / Comment(s): diverticulitis, crohns, back problems History of Any Multi-Drug Resistant Organisms: None Reported Past Surgical History: Adenoidectomy, Hernia Repair, Tonsillectomy Past Psychological History: No Psychological Hx Reported Smoking Status: Current some day smoker Past Alcohol Use History: Rare Past Drug Use History: Marijuana Medications and Allergies Home Medications Medication Instructions Recorded Confirmed Type Promethazine [Phenergan] 25 mg PO Q6HR PRN 01/01/14 05/20/18 History Aspirin EC [Ecotrin Low Dose] 81 mg PO HS 05/19/16 05/20/18 History Omeprazole 20 mg PO HS 05/19/16 05/20/18 History HYDROcodone/APAP 5-325MG [[place] 1 tab PO Q6H PRN 04/28/17 05/20/18 History 5-325] Allergies Allergy/AdvReac Type Severity Reaction Status Date / Time No Known Allergies Allergy Verified 05/20/18 13:26 Physical Exam Vitals: Vital Signs Temp Pulse Resp BP Pulse Ox 08/04/19 03:15 71 18 117/79 98 08/04/19 03:00 79 18 138/76 98 08/04/19 02:45 70 18 121/79 99 08/04/19 02:30 77 18 119/85 99 08/04/19 02:15 80 18 112/78 98 08/04/19 02:00 79 18 119/77 97 08/04/19 01:47 83 18 119/84 98 08/04/19 01:28 98.5 F 83 18 139/95 100 Intake and Output 08/03/19 08/03/19 08/04/19 14:59 22:59 06:59 Other: Weight 108.862 kg General: non toxic, no distress, appears at stated age, normal weight Derm: no unusual rashes/lesions no unusual ecchymoses, warm, dry Head: atraumatic, normocephalic, symmetric Eyes: EOMI, no lid lag, anicteric sclera, pupils equal round reactive to light ENT: Nose and ears atraumatic, no thrush, no pharyngeal erythema Neck: No thyromegaly, no cervical lymphadenopathy, trachea midline, supple Mouth: no lip lesion, mucus membranes moist Cardiovascular: S1S2 reg, no murmur, positive posterior tibial pulse bilateral, no edema, capillary refill less than 2 seconds Lungs: CTA bilateral, no rhonchi, no rales , no accessory muscle use Abdominal: soft, nontender to palpation, no guarding, no appreciable organomegaly, normal bowel sounds Ext: no gross muscle atrophy, muscle strength 5 out of 5 in all 4 extremities grossly, no contractures, Neuro: CN II-XI grossly intact, light touch intact all 4 extremities, finger to nose within normal limits, Babinski downwards, no outstretched hand tremor, no facial asymmetry, speech normal Psych: Alert, oriented, appropriate affect Results CBC & Chem 7: 08/04/19 01:17 08/04/19 01:17 Labs: Abnormal Lab Results - Last 24 Hours (Table) 08/04/19 08/04/19 Range/Units 01:13 01:17 WBC 10.9 H (3.8-10.6) k/uL POC Glucose (mg/dL) 112 H (75-99) mg/dL Assessment and Plan Plan: Stroke-like symptoms status post tPA -tPA protocol -Neuro checks -Neurology consulted -Swallow evaluation, fall, aspiraiton, and seizure precautions -F/u MRI Mild leukocytosis -No active sign of infection at this time -Likely due to acute stress -Monitor for now Chronic conditions: Crohn's disease -C/w home meds DVT prophylaxis -s/p tPA. Avoid all anticoagulants and antiplatelet medications -IPCDs The patient is admitted with an anticipated less than 2 midnight stay for evaluation of acute CVA CODE STATUS: Full Code Discussed with: Patient, Anticipated discharge date: 1-[address]: Home A total of 40 minutes was spent on the care of this complex patient more than 50% of the time was spent in counseling and care coordination.
[2019-08-04 03:44] LABS: Glucose,Whole Blood 106 mg/dL (75-99)
[2019-08-04 04:22] VITALS: TEMP 97.9
[2019-08-04] MEDS ORDERED: HYDROcodone/APAP 5-325MG 1 EACH TAB PO PRN (04:52)
--- NOTE | 2019-08-04 07:30 | P.CNPUL ---
History of Present Illness Consult date: 08/04/19 Chief complaint: Left-sided weakness History of present illness: This is a 39-year-old male patient with previous history of CVA and Crohn's dise ase presents emergency department with sudden onset left-sided weakness and numbness. Symptoms started at 11:30 PM last night and the patient developed an acute left-sided weakness including the left side and face. Stroke was suspected and the patient presented emergency department. He was noted to have left facial droop and some slurring speech. NIH score was 8. The neurointensive this was contacted through the medicine and the patient underwent a CTA of the abdomen and neck and was unremarkable and CVA was administered. The patient subsequently was moved to the intensive care unit for further monitoring. Note that his symptoms recovered following that. This patient. No significant motor weakness or sensory changes in the left side. No headaches. No altered mentation. He is currently hemodynamically stable. Note that the patient has had a previous history of CVA back in 2014 requiring TPA. He smokes marijuana. He was also daily cigarette smoker. His cardiac rhythm is sinus. No history of atrial fibrillation.. Review of Systems Constitutional: Denies chills, Denies fever Eyes: denies as per HPI, denies blurred vision, denies bulging eye, denies decreased vision, denies diplopia, denies discharge, denies dry eye, denies irritation, denies itching, denies pain, denies photophobia, denies loss of pe ripheral vision, denies loss of vision, denies tunnel vision/blind spots Ears: deny: decreased hearing, ear discharge, earache, tinnitus Ears, nose, mouth and throat: Reports as per HPI Breasts: absent: as per HPI, gynecomastia Cardiovascular: Denies chest pain, Denies shortness of breath Respiratory: Reports as per HPI Gastrointestinal: Reports as per HPI Genitourinary: Reports as per HPI Musculoskeletal: Reports as per HPI Musculoskeletal: absent: ankle pain, ankle stiffness, ankle swelling Integumentary: Denies pruritus, Denies rash Neurological: Reports as per HPI, Reports numbness, Reports tingling, Reports weakness Psychiatric: Denies anxiety, Denies depression Endocrine: Reports as per HPI Hematologic/Lymphatic: Reports as per HPI Allergic/Immunologic: Reports as per HPI Past Medical History Past Medical History: No Reported History, CVA/TIA Additional Past Medical History / Comment(s): diverticulitis, crohns, back problems, glaucoma History of Any Multi-Drug Resistant Organisms: None Reported Past Surgical History: Adenoidectomy, Hernia Repair, Tonsillectomy Past Psychological History: Anxiety Smoking Status: Current every day smoker Past Alcohol Use History: None Reported, Rare Past Drug Use History: Marijuana - Past Family History Mother History Unknown: Yes Father Family Medical History: Congestive Heart Failure (CHF), Diabetes Mellitus, Renal Disease Medications and Allergies Home Medications Medication Instructions Recorded Confirmed Type Promethazine [Phenergan] 25 mg PO Q6HR PRN 01/01/14 08/04/19 History Aspirin EC [Ecotrin Low Dose] 81 mg PO HS 05/19/16 08/04/19 History Omeprazole 20 mg PO BID 05/19/16 08/04/19 History HYDROcodone/APAP 5-325MG [[place] 1 tab PO Q6H PRN 04/28/17 08/04/19 History 5-325] Allergies Allergy/AdvReac Type Severity Reaction Status Date / Time No Known Allergies Allergy Verified 05/20/18 13:26 Physical Exam Vitals: Vital Signs Temp Pulse Resp BP Pulse Ox 08/04/19 05:15 95 13 111/75 98 08/04/19 05:00 66 15 120/81 96 08/04/19 04:45 75 13 120/81 98 08/04/19 04:15 97.9 F 67 13 124/94 97 08/04/19 04:00 67 13 132/78 98 08/04/19 03:45 66 12 132/78 97 08/04/19 03:30 74 18 110/76 98 08/04/19 03:15 71 18 117/79 98 08/04/19 03:00 79 18 138/76 98 08/04/19 02:45 70 18 121/79 99 08/04/19 02:30 77 18 119/85 99 08/04/19 02:15 80 18 112/78 98 08/04/19 02:00 79 18 119/77 97 08/04/19 01:47 83 18 119/84 98 08/04/19 01:28 98.5 F 83 18 139/95 100 Intake and Output 08/03/19 08/04/19 08/04/19 22:59 06:59 14:59 Intake Total 200 Output Total 350 Balance -150 Intake: IV 200 Sodium Chloride 0.9% 1, 200 000 ml @ 100 mls/hr IV . Q10H [facility] Rx#:[id number] Output: Urine 350 Other: Weight 102 kg The patient appeared well nourished and normally developed. Vital signs as documented. Head exam is unremarkable. No scleral icterus or corneal arcus noted. Neck is without jugular venous distension, thyromegaly, or carotid bruits. Carotid upstrokes are brisk bilaterally. Lungs are clear to auscultation and percussion. Cardiac exam reveals the PMI to be normally sized and situated. Rhythm is regular. First and second heart sounds normal. No murmurs, rubs or gallops. Abdominal exam reveals normal bowel sounds, no masses, no organomegaly and no aortic enlargement. Extremities are nonedematous and both femoral and pedal pulses are normal.Examination of the skin revealed no evidence of significant rashes, suspicious appearing nevi or other concerning lesions. Neurologically the patient is awake and alert and there is no focal neurological deficit. Cranial nerves are intact. Pupils are equal and reactive to light. No motor deficits. Speech is within normal limits. Results - Laboratory Findings CBC and BMP: 08/04/19 01:17 08/04/19 01:17 PT/INR, D-dimer PT 9.7 sec (9.0-12.0) 08/04/19 01:17 INR 0.9 (<1.2) 08/04/19 01:17 Abnormal lab findings: Abnormal Labs 08/04/19 08/04/19 08/04/19 01:13 01:17 03:42 WBC 10.9 H POC Glucose (mg/dL) 112 H 106 H - Diagnostic Findings Chest x-ray: image reviewed Assessment and Plan Plan: 1 acute CVA with left-sided weakness, post TPA administration. NIH score of 8 at the time of admission. The patient had good neurological recovery. He does have some sensory changes in accordance and some limited weakness on the left side which is probably related to his old CVA. He has had balance issues in the past since 2014 related to his old CVA. For now he is very close or almost back to his baseline. He had taken it TPA without any significant complications or side effects for the time being. 2 previous CVA with some residual left-sided weakness and balance deficits in 2014 3 smoker 4 Crohn's disease, history of currently seems to be inactive in stable and the patient is not receiving any form of biologic sore disease modifying agents or steroids 5 history of diverticulosis/previous diverticulitis 6 history of glaucoma Plan Continue neuro checks for the next 24 hours Will hold off aspirin and antiplatelet agents for the next 24 hours post TPA MRI of the brain Neurology consultation Echocardiogram Lipid profile Urine drug screen TSH free T4 Keep in ICU for the next 24 hours
[2019-08-04 08:49] LABS: T4, Free (Free Thyroxine) 1.11 ng/dL (0.78-2.19)
[2019-08-04 11:11] VITALS: RESP 12
--- NOTE | 2019-08-04 12:01 | ECHOF ---
Referral Reason:cva MEASUREMENTS -------- HEIGHT: 177.8 cm WEIGHT: 101.6 kg BP: 111/75 RVIDd: 3.5 cm (< 3.3) IVSd: 1.3 cm (0.6 - 1.1) LVIDd: 3.9 cm (3.9 - 5.3) LVPWd: 1.3 cm (0.6 - 1.1) IVSs: 1.7 cm LVIDs: 3.1 cm LVPWs: 1.7 cm LA Diam: 3.3 cm (2.7 - 3.8) LAESV Index (A-L): 28.18 ml/m Ao Diam: 3.8 cm (2.0 - 3.7) AV Cusp: 2.5 cm (1.5 - 2.6) MV EXCURSION: 17.701 mm (> 18.000) MV EF SLOPE: 136 mm/s (70 - 150) EPSS: 0.6 cm MV E Efraín: 0.88 m/s MV DecT: 222 ms MV A Efraín: 0.63 m/s MV E/A Ratio: 1.40 RAP: 5.00 mmHg RVSP: 24.03 mmHg TAPSE: 27.33 mm FINDINGS -------- Sinus rhythm. This was a technically good study. The left ventricular size is normal. There is mild concentric left ventricular hypertrophy. Overa ll left ventricular systolic function is normal with, an EF between 60 - 65 %. The right ventricle is mildly enlarged. Normal LA size by volume 22+/-6 ml/m2. The right atrium is normal in size. Interatrial and interventricular septum intact. The aortic valve is trileaflet and appears structurally normal. The mitral valve is normal. Mild tricuspid regurgitation present. Right ventricular systolic pressure is normal at < 35 mmHg. The pulmonic valve was not well visualized. The aortic root is dilated measuring 3.8cm. Normal inferior vena cava with normal inspiratory collapse consistent with estimated right atrial pre ssure of 5 mmHg. There is no pericardial effusion. CONCLUSIONS -------- 1. Sinus rhythm. 2. This was a technically good study. 3. The left ventricular size is normal. 4. There is mild concentric left ventricular hypertrophy. 5. Overall left ventricular systolic function is normal with, an EF between 60 - 65 %. 6. The right ventricle is mildly enlarged. 7. Normal LA size by volume 22+/-6 ml/m2. 8. The right atrium is normal in size. 9. Interatrial and interventricular septum intact. 10. The aortic valve is trileaflet and appears structurally normal. 11. The mitral valve is normal. 12. Mild tricuspid regurgitation present. 13. Right ventricular systolic pressure is normal at < 35 mmHg. 14. The pulmonic valve was not well visualized. 15. The aortic root is dilated measuring 3.8cm. 16. Normal inferior vena cava with normal inspiratory collapse consistent with estimated right atrial pressure of 5 mmHg. 17. There is no pericardial effusion. ARCHITECTURE PROFESSOR: Jael Gonzalez RDCS
[2019-08-04 13:32] VITALS: BP 118/80; PULSE 58
--- NOTE | 2019-08-04 21:58 | P.CNNES ---
History of Present Illness Consult date: 08/04/19 Reason for Consult: concern for stroke, s/p tPA Chief complaint: LUE/LLE weakness History of Present Illness: HISTORY OF PRESENT ILLNESS: Thank you for allowing me to evaluate Mr. Regis Anderson. Mr. Anderson is a 39 year-old man with PMhx of stroke (L-sided numbness about 4 years ago) and diverticulitis, presented to [facility] for sudden onset L-sided weakness. Patient states that he suddenly had L-sided weakness, which patient is familiar with as he had a similar symptom just over a year ago. At the time, patient was told that he had mini strokes. Of note, patient was admitted to this hospital in 08/2016, 05/2018 for L-sided numbness and weakness. Patient states that he has a diagnosis of Crohn's disease, for which he takes vicodin for pain relief. Patient states he was having a headache, about 5/10, which he has right now. He has daily headaches, which doesn't last all day, but does have photophobia, phonophobia and nausea. No vision changes. Patient states that he can't have a healthy diet because vegetable and fruit worsen his Crohn's symptoms but junk food works for him. Patient smokes about half a pack per day, and it's been hard for him to quit as his smokes as well. I was contacted by RN, stating that patient got upset after my evaluation. I spoke to patient for a while about lifestyle changes, which may have upset him. Patient wanted to be discharged, but patient needed to remain in the hospital as he had just received tPA about 12 hours prior. Patient decided to leave [facility]. PAST MEDICAL HISTORY: Stroke, diverticulitis PAST SURGICAL HISTORY: adenoidectomy, hernia repair, tonsillectomy HOME MEDICATIONS: ASA 81mg, omeprazole, norco PRN ALLERGIES: NKDA SOCIAL HISTORY: Current everyday smoker. Rare EtOH use, endorses marijuana use FAMILY HISTORY: No hx of migraines. Father and grandfather from complications of diabetes REVIEW OF SYSTEMS: The 14 systems are reviewed and no additional points are identified compared to the review of systems documented history and physical PHYSICAL EXAMINATION: VITAL SIGNS: T 97.9 HR 65 RR 12 BP 117/76 GEN.: NAD, pleasant and cooperative HEENT: NCAT, sclera without icterus NECK: Supple SKIN AND EXTREMITIES: Warm to touch, no edema NEURO: MENTAL STATUS: Patient alert and oriented to self, place, time. Able to name the current president. Speech fluent, able to name and repeat, following all commands readily. No right and left disorientation, neglect. CRANIAL NERVES II THROUGH XII: II: Pupils are equal and reactive to light symmetrically. Visual long are intact. III, IV, : No ptosis. Extraocular movements full. No nystagmus. V: Facial sensation intact from V1-3. VII. No clear facial asymmetry. VIII: Hearing intact to finger rub bilaterally. IX, X: Symmetric palate elevation. XI: Shoulder shrug intact. XII: Tongue midline without fasciculation or atrophy. MOTOR: Normal bulk/tone. No pronator drift or tremor. Strength is 5/5 throughout all 4 extremities. SENSORY: Intact to light touch in all 4 extremities (but patient reports that he has spots of numbness throughout his L arm that has been present for a long time) REFLEXES: 2+ throughout. Toes are downgoing. COORDINATION: Finger to nose intact. No dysmetria. GAIT: deferred DIAGNOSTIC TESTING: LABORATORY: WBC 10.9 Hgb 15.1 Platelet 313 Na 139 K 3.8 Cl 104 BUN 11 Cr 0.91 glucose 89 AST 23 ALT 21 AlkPhos 49 troponin <0.012 Total cholesterol 124 HDL 33 LDL 76 TG 74 TSH 1.800 IMAGING: CT Head w/o contrast 08/04/2019: Negative CT. No change compared to old exam from 05/2018. CTA Head and Neck w/ and w/o contrast 08/04/2019: Negative CTA of Head Neck. No evidence of intracranial aneurysm or neovascularity MR brain w/o contrast 08/22/2016 no acute intracranial process. minimal nonspecific white matter disease of questionable significance ASSESSMENT/RECOMMENDATIONS: 39 year-old man with PMhx of stroke (L-sided numbness about 4 years ago) and diverticulitis, presented to [facility] for sudden onset L-sided weakness. Patient with similar symptoms in the past, MRI brain at the time was negative. Patient received tPA with stroke code, but patient decided to leave A. Neurology will sign off at this time. Past Medical History Past Medical History: No Reported History, CVA/TIA Additional Past Medical History / Comment(s): diverticulitis, crohns, back problems, glaucoma History of Any Multi-Drug Resistant Organisms: None Reported Past Surgical History: Adenoidectomy, Hernia Repair, Tonsillectomy Past Psychological History: Anxiety Smoking Status: Current every day smoker Past Alcohol Use History: None Reported, Rare Past Drug Use History: Marijuana - Past Family History Mother History Unknown: Yes Father Family Medical History: Congestive Heart Failure (CHF), Diabetes Mellitus, Renal Disease Medications and Allergies Home Medications Medication Instructions Recorded Confirmed Type Promethazine [Phenergan] 25 mg PO Q6HR PRN 01/01/14 08/04/19 History Aspirin EC [Ecotrin Low Dose] 81 mg PO HS 05/19/16 08/04/19 History Omeprazole 20 mg PO BID 05/19/16 08/04/19 History HYDROcodone/APAP 5-325MG [[place] 1 tab PO Q6H PRN 04/28/17 08/04/19 History 5-325] Allergies Allergy/AdvReac Type Severity Reaction Status Date / Time No Known Allergies Allergy Verified 08/04/19 07:52 Physical Examination - Vital Signs Vital Signs: Vital Signs Temp Pulse Resp BP Pulse Ox 08/04/19 05:15 95 13 111/75 98 08/04/19 05:00 66 15 120/81 96 08/04/19 04:45 75 13 120/81 98 08/04/19 04:15 97.9 F 67 13 124/94 97 08/04/19 04:00 67 13 132/78 98 08/04/19 03:45 66 12 132/78 97 08/04/19 03:30 74 18 110/76 98 08/04/19 03:15 71 18 117/79 98 08/04/19 03:00 79 18 138/76 98 08/04/19 02:45 70 18 121/79 99 08/04/19 02:30 77 18 119/85 99 08/04/19 02:15 80 18 112/78 98 08/04/19 02:00 79 18 119/77 97 08/04/19 01:47 83 18 119/84 98 08/04/19 01:28 98.5 F 83 18 139/95 100 Intake and Output 08/03/19 08/04/19 08/04/19 22:59 06:59 14:59 Intake Total 200 100 Output Total 350 0 Balance -150 100 Intake: IV 200 100 Sodium Chloride 0.9% 1, 200 100 000 ml @ 100 mls/hr IV . Q10H [facility] Rx#:[id number] Output: Urine 350 0 Other: Weight 102 kg Results - Laboratory Findings CBC and BMP: 08/04/19 01:17 08/04/19 01:17 Abnormal Lab Findings: Abnormal Labs 08/04/19 08/04/19 08/04/19 01:13 01:17 03:42 WBC 10.9 H POC Glucose (mg/dL) 112 H 106 H HDL Cholesterol 08/04/19 07:47 WBC POC Glucose (mg/dL) HDL Cholesterol 33 L
--- NOTE | 2019-09-06 15:28 | P.DS ---
Providers Date of admission: 08/04/19 02:00 Expected date of discharge: 08/04/19 Attending physician: Costa Felton MD Consults: 08/04/19 02:00 Consult Physician Stat Consulting Provider: Adela Tran Consult Reason/Comments: code strke Do you want consulting provider notified?: Yes, Notify in am 08/04/19 03:38 Consult Physician Stat Consulting Provider: Jenifer Puri Consult Reason/Comments: ICU Do you want consulting provider notified?: Already Contacted Primary care physician: Antony [facility] Hospital Course: The patient is a 39-year-old male with a PMH of CVA (February 2015) status post tPA and Crohn's disease presented to the ED with complaints of sudden onset of left-sided weakness and numbness. The patient reports that at around 11:30 PM on 08/03, the patient walked to the bathroom and when he returned to his bed, the patient suddenly developed weakness involving the entire left side including his face. His noticed his symptoms, particularly his facial droop and slurring of speech, and immediately brought him into the emergency room. The patient was evaluated by the neuro electrician manager via telemedicine and was deemed to have an NIH score of 8. The patient underwent a CTA of head and neck which were unremarkable with no large vessel occlusion noted. He was subsequently administered tPA. The patient underwent an EKG which revealed normal sinus r hythm at [address] was unremarkable. The patient was seen in the emergency room. He reported that his symptoms had entirely resolved after receiving the tPA. He reported that his left side no longer felt weak or numb and that his speech was back to baseline as well. He further denied any additional complaints. Denied headache, visual changes, chest pain, shortness of breath, nausea, vomiting, or dizziness. Laboratory evaluation in the emergency room revealed a WBC count of 10.9, hemoglobin 15.1, platelets 313, sodium 139, potassium 3.8, BUN 11, creatinine 0.91, and glucose 112. He is being admitted to the medicine service for further monitoring and evaluation by neurology. Brain CT was negative. Echocardiogram showed EF 60-65% with mild concentric LVH. CTA head and neck was negative. Neurology was consulted and evaluated the patient. However, patient left AGAINST MEDICAL ADVICE from the emergency room. Admitting diagnosis TIA versus CVA Mild leukocytosis Crohn's disease Pertinent Studies: Brain CT, chest x-ray, CTA head, echocardiogram Patient Condition at Discharge: Critical Plan - Discharge Summary Discharge Rx Participant: Yes New Discharge Prescriptions: No Action Promethazine [Phenergan] 25 mg PO Q6HR PRN PRN Reason: Nausea And Vomiting Aspirin EC [Ecotrin Low Dose] 81 mg PO HS Omeprazole 20 mg PO BID HYDROcodone/APAP 5-325MG [[place] 5-325] 1 tab PO Q6H PRN PRN Reason: pain Discharge Medication List Promethazine [Phenergan] 25 mg PO Q6HR PRN 01/01/14 [History] Aspirin EC [Ecotrin Low Dose] 81 mg PO HS 05/19/16 [History] Omeprazole 20 mg PO BID 05/19/16 [History] HYDROcodone/APAP 5-325MG [[place] 5-325] 1 tab PO Q6H PRN 04/28/17 [History] Follow up Appointment(s)/Referral(s): Antony Altamirano DO [Primary Care Provider] - 1-2 days Discharge Disposition: HOME WITH HOME HEALTH SERVICES
== END 2019-08-04 14:20 | disposition home health service (06) | DRG 62 ==
LOC: EC 01:06 → 2SICU 02:00
PROVIDERS: ADMIT Internal Medicine; ATTEND Internal Medicine
DX: I63.9 Cerebral infarction, unspecified (principal); K50.90 Crohn's disease, unspecified, without complications; K57.92 Diverticulitis of intestine, part unspecified, without perforation or abscess without bleeding; G81.94 Hemiplegia, unspecified affecting left nondominant side; F17.210 Nicotine dependence, cigarettes, uncomplicated; F12.90 Cannabis use, unspecified, uncomplicated; R40.2363 Coma scale, best motor response, obeys commands, at hospital admission; R40.2143 Coma scale, eyes open, spontaneous, at hospital admission; R40.2253 Coma scale, best verbal response, oriented, at hospital admission; R29.810 Facial weakness; R29.708 NIHSS score 8; F41.9 Anxiety disorder, unspecified; Z79.82 Long term (current) use of aspirin; Z82.49 Family history of ischemic heart disease and other diseases of the circulatory system; Z83.3 Family history of diabetes mellitus; Z86.73 Personal history of transient ischemic attack (TIA), and cerebral infarction without residual deficits; Z90.49 Acquired absence of other specified parts of digestive tract; Z90.89 Acquired absence of other organs; Z98.890 Other specified postprocedural states
CPT/HCPCS: 36415; 37195; 70450; 70496; 70498; 71045; 80053; 80061; 84439; 84443; 84481; 84484; 85025; 85610; 85730; 93005; 93306; 96360; 96361; 99291

== ENCOUNTER 2022-06-11 10:23 | Emergency (ER) | payer OTHER ==
[2022-06-11 10:48] VITALS: RESP 20; TEMP 98.1
[2022-06-11] MEDS ORDERED: MORPHINE SULFATE 4 MG/ML SYRINGE IV STA (11:35)
[2022-06-11] MEDS ORDERED: SODIUM CHLORIDE 0.9% 1,000 ML IV STA ×2 (11:35→13:10)
--- NOTE | 2022-06-11 12:06 | ED ---
General Adult HPI - General Chief complaint: Abdominal Pain Stated complaint: stomach pain, back pain Time Seen by Provider: 06/11/22 11:15 Source: patient, RN notes reviewed Mode of arrival: ambulatory Limitations: no limitations - History of Present Illness Initial comments: Patient is a 41-year-old male presenting to the emergency room compl aints of abdominal pain ongoing for approximately 2 weeks with associated back pain that began over the last few days. He reports that he is concerned regarding his back pain associated with his abdominal pain. He reports that he has a history of Crohn's disease and that he has bouts of diarrhea with occasional blood. He states that he had some "tissue" that he passed yesterday along with a "blood clot" but denies any blood in his stool. He reports occasional blood in his stool that typically passes a 1-2 weeks and that typically his stool is a soft brown consistent. He does report decreased stool recently without complaints of constipation. He describes a weird pulsating like sensation to his left side recently that is not currently occurring. He denies any nausea or vomiting, fevers or chills. He states that he has mid back pain bilaterally unchanged with movement but improved with defecation without any urinary frequency, dysuria, or hematuria. He states that this pain is different from his chronic back pain. He reports that he had seen a tab cutter specialist in the past approximately 10 years ago and was advised that he needed significant amount of his colon removed he he chose not to proceed with this recommendation and has not followed up further with other specialists. He states that he did not undergo a biopsy to diagnose him with Crohn's disease and has never been on immune suppressant therapy or other Crohn's management. He also reports a history of diverticulitis and diverticulosis. He states that he had a TIA in the past and reports it was "stress induced." He is taking antacid of Pepcid and Nexium [id number] daily along with a baby aspirin at times otherwise he is not taking any medications on a regular basis. - Related Data Home Medications Medication Instructions Recorded Confirmed Promethazine [Phenergan] 25 mg PO Q6HR PRN 01/01/14 08/04/19 Aspirin EC [Ecotrin Low Dose] 81 mg PO HS 05/19/16 08/04/19 HYDROcodone/APAP 5-325MG [[place] 1 tab PO Q6H PRN 04/28/17 08/04/19 5-325] Esomeprazole Magnesium [NexIUM 20 mg PO HS 06/11/22 06/11/22 24Hr] Omeprazole Magnesium [PriLOSEC OTC] 20 mg PO HS 06/11/22 06/11/22 Allergies Allergy/AdvReac Type Severity Reaction Status Date / Time No Known Allergies Allergy Verified 06/11/22 12:43 Review of Systems ROS Statement: Those systems with pertinent positive or pertinent negative responses have been documented in the HPI. ROS Other: All systems not noted in ROS Statement are negative. Past Medical History Past Medical History: CVA/TIA Additional Past Medical History / Comment(s): diverticulitis, crohns, back problems, glaucoma History of Any Multi-Drug Resistant Organisms: None Reported Past Surgical History: Adenoidectomy, Hernia Repair, Tonsillectomy Past Psychological History: Anxiety Smoking Status: Current every day smoker Past Alcohol Use History: None Reported, Rare Past Drug Use History: Marijuana - Past Family History Mother History Unknown: Yes Father Family Medical History: Congestive Heart Failure (CHF), Diabetes Mellitus, Renal Disease General Exam General appearance: alert, in no apparent distress Head exam: Present: atraumatic, normocephalic, normal inspection Eye exam: Present: normal appearance, PERRL, EOMI. Absent: scleral icterus, conjunctival injection, periorbital swelling ENT exam: Present: normal exam, mucous membranes moist Neck exam: Present: normal inspection, full ROM Respiratory exam: Present: normal lung sounds bilaterally. Absent: respiratory distress, wheezes, rales, rhonchi, stridor Cardiovascular Exam: Present: regular rate, normal rhythm, normal heart sounds. Absent: systolic murmur, diastolic murmur, rubs, gallop, clicks GI/Abdominal exam: Present: soft, tenderness (Left lower quadrant), normal bowel sounds. Absent: distended, guarding, rebound, rigid Rectal exam: Present: normal rectal tone, heme (-) stool, tenderness. Absent: black stool, bloody stool Extremities exam: Present: normal inspection. Absent: pedal edema, joint swelling Back exam: Present: normal inspection, tenderness. Absent: CVA tenderness (R), CVA tenderness (L) Neurological exam: Present: alert, oriented X3, CN II-XII intact Psychiatric exam: Present: normal affect, normal mood Skin exam: Present: warm, dry, intact, normal color. Absent: rash Course Vital Signs 06/11/22 10:45 Temperature 98.1 F Pulse Rate 104 H Respiratory 20 Rate Blood Pressure 120/75 O2 Sat by Pulse 97 Oximetry - Consultations Consultation #1: Spoke with Dr. Beckett on-call surgeon regarding CT call for perforation results by radiologist on CT of the abdomen and pelvis. Advised for admission to medicine with consult to surgery no need for surgery at this time advised IV antibiotics with nothing by mouth status may have ice chips. Orders placed and Zosyn started for antibiotic coverage after blood cultures were drawn. Patient informed of information and [facility] physician who is on-call for city call patient regarding medical admission. Time: 12:38 Consultation #2: Spoke with Dr. Garcia, regarding surgical recommendation for medical admission with Dr. Ch on for consult. IV antibiotic orders RAD in place. [facility] physician excepting of admission. Will place admission consult to infectious disease per request along with admission orders. Time: 13:12 Medical Decision Making - Medical Decision Making 31-year-old male with chronic abdominal symptoms previously advised that he has Crohn's but no previous biopsy not currently following with GI states that he has had abdominal pain for approximately 2 weeks which she believed was a Crohn's flare he says that his bowel movements are typically looser soft brown bowel movement and notes decrease in bowel movements over the last 48 hours he also has associated back pain with his abdominal pain today which he doesn't usually have. He reports having some "tissue" with a bowel movement yesterday along with a clot without any obvious blood. High risk for Crohn's colitis, diverticulitis, ulcerative colitis and perforated bowel given back pain radiation with abdominal pain will obtain CBC, CMP, amylase, lipase, urinalysis and lactic acid along with CT of the abdomen. Will give IV fluid bolus and morphine for pain. CBC revealed mild leukocytosis no other anomalies. CMP revealed low BUN otherwise normal. Amylase and lipase normal. Urinalysis normal. Stool for occult blood negative. Radiology called with critical alert computed tomography scan revealing diverticulitis with bowel perforation. Dr. Beckett surgeon fire information officer called regarding results. Recommendations for admission to medicine received with surgical consult with IV antibiotics, nothing by mouth status, IV hydration and monitoring. [facility] paged regarding Recommendations and accepting of Admission to Medical Team; Will Also Place Infectious Disease on Consult Her Doctor Radha's Request. Patient Resting Comfortably after IV Hydration and Morphine. Patient Admitted in Stable Condition with Antibiotics and IV fluids infusing. Case discussed with Dr. Willett. - Lab Data Result diagrams: 06/11/22 12:28 12 12:28 Lab Results 06/11/22 06/11/22 06/11/22 Range/Units 11:36 12:17 12:28 WBC 12.6 H (3.8-10.6) k/uL RBC 4.52 (4.30-5.90) m/uL Hgb 14.2 (13.0-17.5) gm/dL Hct 39.8 (39.0-53.0) % MCV 88.0 (80.0-100.0) fL MCH 31.4 (25.0-35.0) pg MCHC 35.6 (31.0-37.0) g/dL RDW 12.9 (11.5-15.5) % Plt Count 355 (150-450) k/uL MPV 7.6 Neutrophils % 83 % Lymphocytes % 10 % Monocytes % 3 % Eosinophils % 2 % Basophils % 1 % Neutrophils # 10.4 H (1.3-7.7) k/uL Lymphocytes # 1.3 (1.0-4.8) k/uL Monocytes # 0.4 (0-1.0) k/uL Eosinophils # 0.3 (0-0.7) k/uL Basophils # 0.1 (0-0.2) k/uL Sodium (137-145) mmol/L Potassium (3.5-5.1) mmol/L Chloride (98-107) mmol/L Carbon Dioxide (22-30) mmol/L Anion Gap mmol/L BUN (9-20) mg/dL Creatinine (0.66-1.25) mg/dL Est GFR (CKD-EPI)AfAm (>60 ml/min/1.73 sqM) Est GFR (CKD-EPI)NonAf (>60 ml/min/1.73 sqM) Glucose (74-99) mg/dL Plasma Lactic Acid Van (0.7-2.0) mmol/L Calcium (8.4-10.2) mg/dL Total Bilirubin (0.2-1.3) mg/dL AST (17-59) U/L ALT (4-49) U/L Alkaline Phosphatase (38-126) U/L Total Protein (6.3-8.2) g/dL Albumin (3.5-5.0) g/dL Amylase (30-110) U/L Lipase (23-300) U/L Urine Color Light Yellow Urine Appearance Clear (Clear) Urine pH 6.5 (5.0-8.0) Ur Specific [place] 1.004 (1.001-1.035) Urine Protein Negative (Negative) Urine Glucose (UA) Negative (Negative) Urine Ketones Negative (Negative) Urine Blood Negative (Negative) Urine Nitrite Negative (Negative) Urine Bilirubin Negative (Negative) Urine Urobilinogen <2.0 (<2.0) mg/dL Ur Leukocyte Esterase Negative (Negative) Stool Occult Blood Negative (Negative) 06/11/22 06/11/22 Range/Units 12:28 12:28 WBC (3.8-10.6) k/uL RBC (4.30-5.90) m/uL Hgb (13.0-17.5) gm/dL Hct (39.0-53.0) % MCV (80.0-100.0) fL MCH (25.0-35.0) pg MCHC (31.0-37.0) g/dL RDW (11.5-15.5) % Plt Count (150-450) k/uL MPV Neutrophils % % Lymphocytes % % Monocytes % % Eosinophils % % Basophils % % Neutrophils # (1.3-7.7) k/uL Lymphocytes # (1.0-4.8) k/uL Monocytes # (0-1.0) k/uL Eosinophils # (0-0.7) k/uL Basophils # (0-0.2) k/uL Sodium 139 (137-145) mmol/L Potassium 4.2 (3.5-5.1) mmol/L Chloride 105 (98-107) mmol/L Carbon Dioxide 28 (22-30) mmol/L Anion Gap 6 mmol/L BUN 8 L (9-20) mg/dL Creatinine 0.78 (0.66-1.25) mg/dL Est GFR (CKD-EPI)AfAm >90 (>60 ml/min/1.73 sqM) Est GFR (CKD-EPI)NonAf >90 (>60 ml/min/1.73 sqM) Glucose 97 (74-99) mg/dL Plasma Lactic Acid Van 0.8 (0.7-2.0) mmol/L Calcium 9.1 (8.4-10.2) mg/dL Total Bilirubin 0.5 (0.2-1.3) mg/dL AST 20 (17-59) U/L ALT 16 (4-49) U/L Alkaline Phosphatase 62 (38-126) U/L Total Protein 6.4 (6.3-8.2) g/dL Albumin 3.7 (3.5-5.0) g/dL Amylase 43 (30-110) U/L Lipase 58 (23-300) U/L Urine Color Urine Appearance (Clear) Urine pH (5.0-8.0) Ur Specific [place] (1.001-1.035) Urine Protein (Negative) Urine Glucose (UA) (Negative) Urine Ketones (Negative) Urine Blood (Negative) Urine Nitrite (Negative) Urine Bilirubin (Negative) Urine Urobilinogen (<2.0) mg/dL Ur Leukocyte Esterase (Negative) Stool Occult Blood (Negative) - Radiology Data Radiology results: report reviewed, image reviewed CT the abdomen and pelvis without contrast impression per radiologist perforated distal colitis likely product of acute diverticulitis in the upper to mid pelvis of the proximal to mid sigmoid colon. Disposition Clinical Impression: Intra-abdominal abscess Disposition: ADMITTED IP TO THIS HOSP Condition: Stable Is patient prescribed a controlled substance at d/c from ED?: No Referrals: Antony Altamirano DO [Primary Care Provider] - 1-2 days Time of Disposition: 14:42
--- NOTE | 2022-06-11 12:26 | CT ---
EXAMINATION TYPE: CT abdomen pelvis wo con DATE OF EXAM: 06/11/2022 HISTORY: Abdominal/back pain. Hx Chron' s disease. CT DLP: 1020.4 mGycm. Automated Exposure Control for Dose Reduction was Utilized. TECHNIQUE: CT scan of the abdomen and pelvis is performed without oral or IV contrast. COMPARISON: Prior CT April 19, 2014 FINDINGS: Within the limitations of a non-contrast study, the following observations are made. LUNG BASES: No significant abnormality is appreciated. LIVER/GB: No significant abnormality is appreciated. PANCREAS: No significant abnormality is seen. SPLEEN: No significant abnormality is seen. ADRENALS: No significant abnormality is seen. KIDNEYS: Extrarenal pelvises without calyceal dilatation are redemonstrated. Mild right-sided hydrour eter without obstructing calculus. BOWEL: Suboptimal evaluation without enteric contrast. No suspicious small or large bowel dilatation is seen. There are round hyperdense areas throughout the small and large bowel loops could reflect no nabsorbed digested pills. There is normal-appearing appendix from the cecum in the right pelvis. Ther e are few diverticula in the sigmoid colon. There is moderate to severe wall thickening proximal to m id sigmoid colon left pelvis. There is severe ill-defined fluid and fat stranding at this level. Ther e is a focus of extraluminal air with ill-defined fluid and soft tissue measuring 3.7 x 3.4 cm likely reflecting developing abscess axial image 61. Terminal ileum appears grossly within normal limits co fernanda image 46. GENITAL ORGANS: No gross abnormality seen. LYMPH NODES: No greater than 1cm abdominal or pelvic lymph nodes are appreciated. OSSEOUS STRUCTURES: New bilateral sclerosis with areas of subtle lucency possible subchondral cystic change in the bilateral sacroiliac joints. Sacroiliitis related to underlying irritable bowel disease is suspected. OTHER: No significant additional abnormality is seen. IMPRESSION: Perforated distal colitis likely product of acute diverticulitis in the upper to mid pelv is of the proximal to mid sigmoid colon as detailed above. Results were communicated to emergency room physician via telephone at time of dictation.
[2022-06-11] MEDS ORDERED: PIPERACILLIN-TAZOBACTAM 3.375 GM in SODIUM CHLORIDE 0.9% 100 ML IVPB STA (12:28)
[2022-06-11 12:37] LABS: Basophils # (A) 0.1 k/uL (0-0.2); Basophils % (A) 1 %; Eosinophils # (A) 0.3 k/uL (0-0.7); Eosinophils % (A) 2 %; HCT 39.8 % (39.0-53.0); HGB 14.2 gm/dL (13.0-17.5); Lymphocytes # (A) 1.3 k/uL (1.0-4.8); Lymphocytes % (A) 10 %; MCH 31.4 pg (25.0-35.0); MCHC 35.6 g/dL (31.0-37.0); Mean Platelet Volume 7.6; Monocytes # (A) 0.4 k/uL (0-1.0); Monocytes % (A) 3 %; Neutrophils # (A) 10.4 k/uL (1.3-7.7); Neutrophils % (A) 83 %; Platelet Count 355 k/uL (150-450); RBC 4.52 m/uL (4.30-5.90); RDW 12.9 % (11.5-15.5); WBC 12.6 k/uL (3.8-10.6)
[2022-06-11 12:41] LABS: Appearance,Urine Clear (Clear); Bilirubin,Urine Negative (Negative); Blood,Urine Negative (Negative); Color,Urine Light Yellow; Glucose,Urine (UA) Negative (Negative); Ketones,Urine Negative (Negative); Leukocyte Esterase,Urine Negative (Negative); Nitrite,Urine Negative (Negative); PH, Urine 6.5 (5.0-8.0); Protein,Urine Negative (Negative); Specific Gravity,Urine 1.004 (1.001-1.035); Urobilinogen,Urine <2.0 mg/dL (<2.0)
[2022-06-11 12:49] LABS: ALT 16 U/L (4-49); AST 20 U/L (17-59); African American GFR (CKD) >90 (>60 ml/min/1.73 sqM); Albumin 3.7 g/dL (3.5-5.0); Alkaline Phosphatase 62 U/L (38-126); Amylase 43 U/L (30-110); Anion Gap 6 mmol/L; Blood Urea Nitrogen 8 mg/dL (9-20); Calcium 9.1 mg/dL (8.4-10.2); Carbon Dioxide 28 mmol/L (22-30); Chloride 105 mmol/L (98-107); Glucose 97 mg/dL (74-99); Lipase 58 U/L (23-300); Non-African American GFR(CKD) >90 (>60 ml/min/1.73 sqM); Potassium 4.2 mmol/L (3.5-5.1); Sodium 139 mmol/L (137-145); Total Bilirubin 0.5 mg/dL (0.2-1.3); Total Protein 6.4 g/dL (6.3-8.2)
[2022-06-11 12:51] LABS: Prothrombin Time 10.3 sec (9.0-12.0)
[2022-06-11] MEDS ORDERED: metroNIDAZOLE-NS PMX 500 MG in SALINE 1 100ML.BAG IVPB STA (13:10)
[2022-06-11 14:25] VITALS: BP 113/66; PULSE 74
[2022-06-11] MEDS ORDERED: MORPHINE SULFATE 4 MG/ML SYRINGE IV PRN (14:38)
[2022-06-11] MEDS ORDERED: ACETAMINOPHEN TAB 325 MG TAB PO PRN (14:38)
[2022-06-11] MEDS ORDERED: NALOXONE 0.4 MG/ML 1 ML VIAL IV PRN (14:38)
[2022-06-11] MEDS ORDERED: ONDANSETRON 4 MG/2 ML VIAL IVP PRN (14:38)
[2022-06-11] MEDS ORDERED: SODIUM CHLORIDE 0.9% 1,000 ML IV SCH (14:45)
[2022-06-11] MEDS ORDERED: NICOTINE 21MG/24HR PATCH TRANSDERM SCH (15:00)
--- NOTE | 2022-06-11 16:16 | P.PN ---
Progress Note - Text Progress Note Date: 06/11/22 Attempted to evaluate patient. He informed me that he is leaving AGAINST MEDICAL ADVICE and has already signed the paperwork to be discharged. He is frustrated that he is not having a surgical procedure done and is going to go home.
== END 2022-06-11 16:50 | disposition other institution (70) ==
LOC: EC 10:23 → UNDOADMIN 14:39 → 4SSUR 14:39 → UNDOADMIN 16:08 → 4SSUR 16:08 → UNDODISIN 16:39
DX: L02.211 Cutaneous abscess of abdominal wall (principal); G45.9 Transient cerebral ischemic attack, unspecified; F17.200 Nicotine dependence, unspecified, uncomplicated; F12.90 Cannabis use, unspecified, uncomplicated; K63.1 Perforation of intestine (nontraumatic); F41.9 Anxiety disorder, unspecified; Z79.82 Long term (current) use of aspirin
CPT/HCPCS: 99285 ×2; 96365 ×2; 96367 ×2; 96375 ×2; 96361 ×2; 36415; 80053; 82150; 83605; 83690; 85025; 85610; 82272; 81003; 87040; 74176; J2543; J2270